=== PATIENT | female | born 1975 | race African-American/Black ===

== ENCOUNTER 2020-07-27 17:36 | Observation (INO) | payer OTHER ==
[2020-07-27] MEDS ORDERED: Acetaminophen 500 MG TAB ONE (17:50)
[2020-07-27 17:58] LABS: #Eosinphils 0.2 10x3/uL (0.0-0.5); #Monocytes 0.3 10x3/uL (0.0-1.1); %Basophils 0.3 % (0.0-2.0); %Eosinophils 1.6 % (0.0-6.0); %Lymphocytes 32.4 % (18.0-47.0); %Monocytes 2.9 % (0.0-10.0); %Neutrophils 62.6 % (40.0-75.0); Mean Corpuscular HGB CONC 32.3 g/dL (32.0-36.0); Mean Corpuscular Hemoglobin 26.9 pg (27.0-33.0); Mean Corpuscular Volume 83.4 fl (81.6-98.3); Mean Platelet Volume 10.1 fl (7.4-10.4); Platelet Count 277 10x3/uL (150-450); RBC Distribution Width 14.1 % (11.5-14.5); Red Blood Cell (RBC) Count 4.46 10x6/uL (3.90-5.03); White Blood Cell (WBC) Count 11.1 10x3/uL (3.5-10.5)
[2020-07-27 18:10] LABS: ALT (SGPT) 15 U/L (8-55); AST (SGOT) 19 U/L (5-34); Albumin 3.9 g/dL (3.5-5.0); Alkaline Phosphatase 77 U/L (40-110); Anion Gap 13 mmol/L (10-20); BUN (Urea Nitrogen) 9 mg/dL (7.0-18.7); Bilirubin, Total 0.2 mg/dL (0.2-1.2); Calc. Creatinine Clearance 0 mL/min (70-130); Calcium 8.8 mg/dL (7.8-10.44); Carbon Dioxide 23 mmol/L (22-29); Chloride 107 mmol/L (98-107); Globulin 3.1 g/dL (2.4-3.5); Glucose 115 mg/dL (70-105); Potassium 3.8 mmol/L (3.5-5.1); Sodium 139 mmol/L (136-145)
[2020-07-27 20:05] LABS: Troponin I Less than 0.010 ng/mL (< 0.028)
[2020-07-27] MEDS ORDERED: Acetaminophen 325 MG TAB PO PRN (20:25)
[2020-07-27] MEDS ORDERED: Zolpidem Tartrate 5 MG TAB PO PRN (20:25)
[2020-07-27] MEDS ORDERED: Senokot S 8.6-50 MG TAB PO PRN (20:25)
[2020-07-27] MEDS ORDERED: Calcium Carbonate 500 MG ChewTAB PO PRN (20:25)
[2020-07-27] MEDS ORDERED: Ondansetron PF 4 MG/2 ML Vial IVP PRN (20:25)
[2020-07-27] MEDS ORDERED: Nitroglycerin 0.4 MG TAB (25 Tab Bottle) SL PRN (20:27)
[2020-07-27] MEDS ORDERED: Nicotine 21 MG PATCH TD SCH (20:30)
[2020-07-27] MEDS ORDERED: Sodium Chloride 0.9% 500 ML IV SCH (20:30)
[2020-07-27 23:00] VITALS: BMI 44.9
[2020-07-27] MEDS: Metoprolol Tartrate 25 MG TAB PO SCH (23:19)
[2020-07-27] MEDS: HYDROcodone/Acetaminophen 5/325 mg Tablet PO PRN (23:20)
[2020-07-27] MEDS: Famotidine 20 MG TAB PO SCH (23:25)
[2020-07-28] MEDS: HYDROcodone/Acetaminophen 5/325 mg Tablet PO PRN ×2 (03:36→09:01)
[2020-07-28 04:44] LABS: Bilirubin Neg (Negative); Blood, Urine Negative (Negative); Clarity Clear (Clear); Glucose, Urine (Dipstick) Normal (Negative); Ketone, Urine Negative (Negative); Leukocyte Negative (Negative); Nitrite Negative (Negative); Protein, Urine (Dipstick) Negative (Neg-Trace); Urobilinogen Normal mg/dL (Less than 2)
[2020-07-28 04:46] LABS: Pregnancy Test - Urine (BHCG) Negative (Negative); Urine Culture Reflex No No
[2020-07-28 04:47] LABS: Pregu Control Background? CLEAR/WHITE (CLR/WHITE); Pregu Control Bar Appear? YES (CONTROL BAR)
[2020-07-28 05:09] LABS: Bacteria/HPF Rare-Few HPF (None Seen); RBC/HPF 0-3 HPF (0-3); Squamous Epithelial 0-3 HPF (0-3); WBC/HPF 0-3 HPF (0-3)
[2020-07-28 05:29] LABS: Cardiac Risk 3.9 (Less than 4.5)
[2020-07-28] MEDS ORDERED: GUAIFENESIN SF SOLN 200 MG/10 ML UDCUP PO PRN (07:23)
[2020-07-28] MEDS ORDERED: Eucerin (Mineral Oil/Petrolatum,White) 30 gm Jar TOP PRN (07:23)
[2020-07-28] MEDS ORDERED: hydrALAZINE 20 MG/ML VIAL SLOW IVP PRN (07:23)
[2020-07-28] MEDS ORDERED: Sodium Chloride 0.65% Nasal 44 ML BOT EA NARE PRN (07:23)
[2020-07-28] MEDS ORDERED: Cepastat Lozenges 1 LOZ PO PRN (07:23)
[2020-07-28] MEDS ORDERED: Loratadine 10 MG TAB PO PRN (07:23)
[2020-07-28] MEDS ORDERED: Loperamide HCl 2 MG CAP PO PRN (07:23)
[2020-07-28] MEDS ORDERED: guaiFENesin 100 MG/5 ML UDCUP PO PRN (08:14)
[2020-07-28] MEDS: Famotidine 20 MG TAB PO SCH (08:58)
[2020-07-28] MEDS: Metoprolol Tartrate 25 MG TAB PO SCH (08:58)
[2020-07-28] MEDS ORDERED: Aspirin 81 mg Enteric Coated Tablet PO SCH (09:00)
[2020-07-28] MEDS ORDERED: Multivitamin W/ Minerals 1 TAB PO SCH (09:00)
[2020-07-28] MEDS ORDERED: Enoxaparin Sodium 40 MG/0.4 ML SYRINGE SC SCH (09:00)
[2020-07-28 14:45] VITALS: BP 127/93; TEMP 98
[2020-07-28 15:49] LABS: Hemoglobin A1c 5.6 % (4.0-6.0)
== END 2020-07-28 16:06 | disposition home or self-care (01) ==
LOC: CSHERS 17:36 → CSHTELE 22:45
PROVIDERS: ADMIT Student in an Organized Health Care Education/Training Program; ATTEND Internal Medicine
DX: R07.89 Other chest pain (principal); F17.210 Nicotine dependence, cigarettes, uncomplicated; R73.9 Hyperglycemia, unspecified; E66.01 Morbid (severe) obesity due to excess calories; Z79.899 Other long term (current) drug therapy; F12.10 Cannabis abuse, uncomplicated
CPT/HCPCS: 36415; 71045; 80053; 80061; 81001; 81025; 83036; 84443; 84484; 85025; 85379; 93306; 96372; G0378; J1650